=== PATIENT | male | born 2000 | race Caucasian/White ===

== ENCOUNTER 2022-01-07 08:51 | Emergency (ER) | payer OTHER ==
[2022-01-07 09:34] LABS: BASOPHILS # (AUTO) 0.1 10^3/uL (0.0-0.1); BASOPHILS % (AUTO) 0.5 %; EOSINOPHILS % (AUTO) 0.3 %; HGB - HEMOGLOBIN 14.8 g/dL (14.0-18.0); MEAN CORPUSCULAR HEMOGLOBIN 29.3 pg (27.0-31.0); MEAN CORPUSCULAR HGB CONC 33.6 g/dL (32.0-36.0); MEAN CORPUSCULAR VOLUME 87.1 fL (80.0-94.0); MEAN PLATELET VOLUME 10.7 fL (7.4-11.4); MONOCYTES # (AUTO) 0.7 10^3/uL (0.0-1.0); MONOCYTES % (AUTO) 5.7 %; NEUTROPHILS # (AUTO) 11.1 10^3/uL (1.5-6.6); NEUTROPHILS % (AUTO) 85.2 %; PLT - PLATELET COUNT 278 10^3/uL (130-450); RED BLOOD COUNT 5.05 10^6/uL (4.70-6.10); RED CELL DISTRIBUTION WIDTH 12.6 % (12.0-15.0)
[2022-01-07 09:47] LABS: ALBUMIN 4.9 g/dL (3.2-5.5); ALBUMIN/GLOBULIN RATIO 1.5 (1.0-2.2); BILIRUBIN,TOTAL 0.9 mg/dL (0.2-1.0); CALCIUM 9.7 mg/dL (8.5-10.3); CREATININE 1.1 mg/dL (0.6-1.2); POTASSIUM 4.4 mmol/L (3.5-5.0); TOTAL PROTEIN 8.1 g/dL (6.7-8.2)
[2022-01-07] MEDS ORDERED: SODIUM CHLORIDE 0.9% 1,000 ML IV STA (10:41)
[2022-01-07] MEDS ORDERED: ONDANSETRON 4 MG/2 ML VIAL IVP STA (11:06)
--- NOTE | 2022-01-07 11:57 | CT Report ---
PROCEDURE: Abdomen/Pelvis W INDICATIONS: RLQ abd pain/vom CONTRAST: IV CONTRAST: Optiray 320 ml: 100 PO CONTRAST: *NO PO CONTRAST TECHNIQUE: After the administration of intravenous contrast, 5 mm thick sections acquired from the diaphragms to the symphysis. 5 mm thick coronal and sagittal reformats were acquired. For radiation dose reducti on, the following was used: automated exposure control, adjustment of mA and/or kV according to manolo ent size. COMPARISON: None. FINDINGS: Image quality: Excellent. ABDOMEN: Lung bases: Lung bases are clear. Heart size is normal. Solid organs: Liver and spleen are normal in size and enhancement. Gallbladder is unremarkable. Bi liary system is non dilated. Pancreas enhances normally. No adrenal nodules. Kidneys demonstrate n ormal size and enhancement, without hydronephrosis. Peritoneum and bowel: Bowel loops demonstrate normal wall thickness and caliber. Moderate colonic s tool is present. The appendix is at the upper limits of normal in size, measuring 5.5 mm. There is a very minimal appearance of periappendical stranding. No priors are available for comparison. No f ree fluid or air. Nodes and vessels: No retroperitoneal or mesenteric adenopathy by size criteria. Aorta and inferior vena cava are normal in size. Miscellaneous: No ventral hernias. PELVIS: Genitourinary: Bladder wall thickness is normal. Miscellaneous: No inguinal hernias or adenopathy. Bones: No suspicious bony lesions. No vertebral body compression fractures. IMPRESSION: Appendix is at the upper limits of normal in size with very minimal periappendical stranding. Appear ance is non specific. No priors available for comparison. Very early appendicitis cannot be complet alice excluded. Clinical correlation and followup imaging is recommended. Moderate colonic stool. Reviewed by: Renata Jones MD on 01/07/2022 11:56 AM PDT Approved by: Renata Jones MD on 01/07/2022 11:56 AM PDT Station ID: [id number]
--- NOTE | 2022-01-07 12:51 | ED Physician Documentation ---
PD HPI ABD PAIN - Stated complaint Stated Complaint: ABD PAIN - Chief complaint Chief Complaint: Abd Pain - History obtained from History obtained from: Patient, Family - Additional information Additional information: The pt comes to the ED with CC of abdominal pain, N/V and constipation. The pt states the sx started yesterday with more generalized abd pn, but that the pain is a little more localized to the lower abdomen now, especially R side. Nausea is a little better now. No sick contacts. No fevers or chills. No abdominal surgical hx. Pt does note he has been constipated for a few days. Review of Systems Ten Systems: 10 systems reviewed and negative Constitutional: reports: Reviewed and negative Eyes: reports: Reviewed and negative Ears: reports: Reviewed and negative Nose: reports: Reviewed and negative Throat: reports: Reviewed and negative Cardiac: reports: Reviewed and negative Respiratory: reports: Reviewed and negative GI: reports: Abdominal Pain, Nausea, Vomiting, Constipation : reports: Reviewed and negative Skin: reports: Reviewed and negative Musculoskeletal: reports: Reviewed and negative Neurologic: reports: Reviewed and negative Psychiatric: reports: Reviewed and negative Endocrine: reports: Reviewed and negative Immunocompromised: reports: Reviewed and negative PD PAST MEDICAL HISTORY - Past Medical History Past Medical History: No - Past Surgical History Past Surgical History: No - Present Medications Home Medications: Ambulatory Orders Medication Instructions Recorded Confirmed Magnesium Citrate [Citrate of 148 ml PO Q8H PRN #296 ml 01/07/22 Magnesia] Ondansetron Odt [Zofran] 4 mg TL Q6H PRN #10 tablet 01/07/22 - Allergies Allergies/Adverse Reactions: Allergies Allergy/AdvReac Type Severity Reaction Status Date / Time No Known Drug Allergies Allergy Verified 01/07/22 09:12 - Social History Does the pt smoke?: No Smoking Status: Never smoker Does the pt drink ETOH?: No Does the pt have substance abuse?: No - Immunizations Immunizations are current?: Yes - POLST Patient has POLST: No PD ED PE NORMAL - Vitals Vital signs reviewed: Yes - General General: Alert and oriented X 3, No acute distress - HEENT HEENT: Atraumatic, PERRL, EOMI, Moist mucous membranes - Neck Neck: Supple, no meningeal sign - Cardiac Cardiac: RRR, No murmur - Respiratory Respiratory: No respiratory distress, Clear bilaterally - Abdomen Abdomen: Soft, Non distended, Other (Minimal RLQ tenderness. No rebound or guarding.) - Derm Derm: Warm and dry - Extremities Extremities: No deformity - Neuro Neuro: Alert and oriented X 3 - Psych Psych: Normal mood, Normal affect Results - Vitals Vitals: Oxygen O2 Source Room air - Labs Labs: Laboratory Tests 01/07/22 01/07/22 09:30 09:30 WBC 13.0 H RBC 5.05 Hgb 14.8 Hct 44.0 MCV 87.1 MCH 29.3 MCHC 33.6 RDW 12.6 Plt Count 278 MPV 10.7 Neut # (Auto) 11.1 H Lymph # (Auto) 1.0 L [place] # (Auto) 0.7 Eos # (Auto) 0.0 Baso # (Auto) 0.1 Absolute Nucleated RBC 0.00 Nucleated RBC % 0.0 Sodium 138 Potassium 4.4 Chloride 101 Carbon Dioxide 28 Anion Gap 9.0 BUN 15 Creatinine 1.1 Estimated GFR (MDRD) 84 L Glucose 120 H Calcium 9.7 Total Bilirubin 0.9 AST 29 ALT 35 Alkaline Phosphatase 79 Total Protein 8.1 Albumin 4.9 Globulin 3.2 Albumin/Globulin Ratio 1.5 Lipase 28 - Rads (name of study) CT abd/pelvis Radiology: Final report received, EMP read indepedently, See rad report (Appendix upper limits of normal. Slight fluid around appendix, but no other findings c/w appendicitis. Cannot r/o very early appendicitis.) PD MEDICAL DECISION MAKING - ED course Complexity details: reviewed results, re-evaluated patient, considered differential, d/w patient, d/w family ED course: Pt was worked up with labs and CT abd/pelvis. He was found to have a very mild leukocytosis, but CT did not show conclusive appendicitis. Appendix was within the upper limits of normal, and other than slight fluid in the area, no other abnormalities were noted. Radiologist could not rule out very early appendicitis. Pt declined analgesia in the ED, and was feeling better after Z ofran. I d/w pt and dad that at this point in time, conclusive findings of appendicitis are not present. The pt has a benign abdomen, with only very slight tenderness in the RLQ. As such, I feel it is reasonable to conservatively manage with observation at home. I have d/w pt that if the pain becomes significantly worse at any time, he should return. If in 12 hours, his sx have not significantly improved, or if they have worsened at all, he should return for re-evaluation. We have discussed a clear liquid diet for the next 24 hours. If sx stabilize, then begin improving, pt can continue to observe at home without returning to the ED. Departure - Departure Disposition: 01 Home, Self Care Clinical Impression: Abdominal pain Qualifiers: Abdominal location: right lower quadrant Qualified Code(s): R10.31 - Right lower quadrant pain Constipation Qualifiers: Constipation type: unspecified constipation type Qualified Code(s): K59.00 - Constipation, unspecified Condition: Stable Instructions: ED Abdominal Pain Unkn Cause Male Prescriptions: Magnesium Citrate [Citrate of Magnesia] 148 ml PO Q8H PRN #296 ml PRN Reason: Constipation Ondansetron Odt [Zofran] 4 mg TL Q6H PRN #10 tablet PRN Reason: Nausea / Vomiting Comments: Your labs overall look fairly good. You have a slight white blood cell elevation which could be from any of the possible conditions, including the vomiting or viral illness. Your CT scan showed an appendix within normal limits for size though years was at the upper limits. There is no obvious blockage, distention, or inflammation of the appendix or surrounding structures. Given that your symptoms could be indicative of very early appendicitis or a number of other conditions including a viral syndrome or constipation, the best plan at this point is to allow you to be discharged but with strict return precautions, should you notice any worsening of your symptoms over the next 12 hours. If your symptoms get drastically worse before that, you should return to the emergency department immediately. However, you should otherwise plan to take the nausea medication and laxative as needed, and stick with mainly clear liquids today. If you do not feel any worse or if you feel better, then you may continue at home. However, if your pain worsens in the right lower abdomen, and continues to worsen over the course of the afternoon and evening into the night, you should return for reevaluation with repeat labs and CT. Your prescriptions have been electronically transmitted to [facility] in [place]. Discharge Date/Time: 01/07/22 13:17
[2022-01-07 13:17] VITALS: BP 114/50
== END 2022-01-07 13:17 | disposition home or self-care (01) ==
LOC: ED 08:51
DX: R10.31 Right lower quadrant pain (principal); K59.00 Constipation, unspecified; R11.2 Nausea with vomiting, unspecified
CPT/HCPCS: 36415; 74177; 80053; 83690; 85025; 96374; 99284; Q9967